=== PATIENT | female | born 1970 | race Two or more races ===

== ENCOUNTER 2024-09-08 06:55 | Day surgery (SDC) | payer MEDICAID, SELFPAY ==
[2024-09-06 11:22] VITALS: BMI 27.4
[2024-09-06 12:01] LABS: Basophils # (Auto) 0.1 Thou/mm3 (0.0-0.2); Basophils % (Auto) 1 % (0-2.5); Eosinophils # (Auto) 0.0 Thou/mm3 (0.0-0.5); Eosinophils % (Auto) 1 % (0-10); Hematocrit 39.3 % (36.0-46.0); Hemoglobin 12.9 g/dL (12.0-16.0); Immature Granulocytes Auto 0.02 Thou/mm3 (0.00-0.00); Lymphocytes # (Auto) 1.5 Thou/mm3 (1.0-4.8); Lymphocytes % (Auto) 25 % (10-50); Mean Corpuscular HGB Conc 32.8 g/dl (31.0-37.0); Mean Corpuscular Hemoglobin 29.5 pg (25.0-35.0); Mean Corpuscular Volume 90 fL (80-100); Monocytes # (Auto) 0.6 Thou/mm3 (0.0-0.8); Monocytes % (Auto) 9 % (0-12); Neutrophils # (Auto) 3.8 Thou/mm3 (1.8-7.7); Neutrophils % (Auto) 64 % (37-80); Nucleated Red Blood Cell # 0.00 Thou/mm3 (0.00-0.00); Nucleated Red Blood Cell % 0 /100 WBC (0); Platelet Count 170 Thou/mm3 (140-440); RDW Standard Deviation 42.0 fL (36.4-46.3); Red Blood Count 4.37 Miln/mm3 (4.00-5.20); White Blood Count 6.0 Thou/mm3 (3.6-11.0)
[2024-09-06 12:23] LABS: Alanine Aminotransferase 87 U/L (10-49); Albumin, Serum 4.2 gm/dL (3.5-5.0); Albumin/Globulin Ratio 1.4 (1.2-2.2); Alkaline Phosphatase 155 U/L (46-116); Anion Gap 8 (7-16); Aspartate Amino Transferase 97 U/L (0-34); BUN/Creatinine Ratio 14 Ratio (12-20); Bilirubin,Total 0.8 mg/dL (0.3-1.2); Blood Urea Nitrogen 14 mg/dL (9-23); Calcium 9.2 mg/dL (8.3-10.6); Calcium (Corrected) 9.2 mg/dL (8.5-10.1); Carbon Dioxide 27.6 mMol/L (20.0-31.0); Chloride 109 mMol/L (98-107); Creatinine (Component) 1.0 mg/dL (0.6-1.3); Estimated Creatinine Clearance 63.6 mL/min (>60); Globulin 3.0 gm/dL (2.3-3.5); Glucose 95 mg/dL (74-106); Osmolality,Calculated 289 (275-295); Potassium 4.0 mMol/L (3.4-5.1); Sodium 145 mMol/L (136-145); Total Protein 7.2 gm/dL (5.7-8.2); eGFR > 60 See Note
[2024-09-06 13:01] LABS: HIV (1&2) Antibody Rapid Non-Reactive
[2024-09-06 13:02] LABS: Hepatitis A Antibody IgM Non Reactive (Non React); Hepatitis B Core Antibody IgM Reactive (Non React); Hepatitis B Surface Antigen Non Reactive (Non React); Hepatitis C Antibody Non Reactive (Non React)
--- NOTE | 2024-09-07 09:59 | ESHP_ITS ---
Documentation for date of: 09/07/24 INTERIOR WALL ASSEMBLER - HPI History of Present Illness History of present illness: Ms. KELLOGG is a 54 year old female admitted for cervical conization. Pt denied any questions and concerns. Pt was given the option of hysterectomy vs conization , all risk and benefits were discussed . Pt chose to undergo Cervical conization. Meds Home Medications and Allergies Home Medications ?Medication ?Instructions ?Recorded ?Confirmed ?Type atorvastatin 40 mg tablet 40 mg PO HS 01/27/23 5 History levothyroxine 88 mcg tablet 88 mcg PO DAILY 01/27/23 0 09/06/24 History Allergies Allergy/AdvReac Type Severity Reaction Status Date / Time No Known Allergies Allergy Verified 09/06/24 11:21 Exam - INTERIOR WALL ASSEMBLER Constitutional Constitutional: no acute distress Routine HEENT Exam Head: Present normocephalic and atraumatic Eye: Present EOMI and PERRL ENT: Present mucous membranes moist Routine Neck Exam Neck: Present supple and trachea midline Routine Respiratory Exam Respiratory: Present chest non-tender, lungs clear, normal breath sounds and no resp distress Routine Cardiovascular Exam Cardiovascular: Present RRR Routine Abdominal Exam Abdominal: Present soft and normoactive bowel sounds Routine Extremities Exam Extremities: Present full ROM Routine Skin Exam Skin: Present intact and dry Routine Neurological Exam Neurological: Present alert, oriented X3 and CN II-XII intact Routine Psychiatric Exam Psychiatric: Present normal affect and normal thought process INTERIOR WALL ASSEMBLER - Results Labs 09/06/24 11:40 09/06/24 11:40 Labs: Short CBC 09/06/24 Range/Units 11:40 WBC 6.0 (3.6-11.0) Thou/mm3 Hgb 12.9 (12.0-16.0) g/dL Hct 39.3 (36.0-46.0) % Plt Count 170 (140-440) Thou/mm3 BMP 09/06/24 11:40 Sodium 145 Potassium 4.0 Chloride 109 H Carbon Dioxide 27.6 BUN 14 Creatinine 1.0 Glucose 95 Calcium 9.2 Liver Function 09/06/24 Range/Units 11:40 Total Bilirubin 0.8 (0.3-1.2) mg/dL AST 97 H (0-34) U/L ALT 87 H (10-49) U/L Alkaline Phosphatase 155 H (46-116) U/L Albumin 4.2 (3.5-5.0) gm/dL Impressions Impression: Colpo JJ 2 PAP ASC-H+HPV Patient was made aware that cold knife conization is removal of conical shape of cervix typically including the dysplastic cells, however chances of margin positivity exist , can only be confirmed after pathology examination. Alternative of hysterectomy discussed Risk of surgery includes bleeding , infectionIts an outpatnet surgery and anticipated discharge same day Quality Measures Quality Measures VTE prophylaxis
[2024-09-08] VITALS (7 sets, daily range): BP systolic 133–156; BP diastolic 85–102; PULSE 65–80; RESP 12–18; TEMP 36.6–37.3; O2SAT 96–100; BMI 27.3
[2024-09-08] MEDS: RINGERS LACTATED 1000 ML 1,000 ML 20 ML IV (07:49)
--- NOTE | 2024-09-08 09:47 | SUR.PHASEI ---
0903 Patient arrived to recovery resting comfortably in [facility], sleeping and able to arouse with verbal prompting then drifts back to sleep, on oxygen 10L via oxy mask, breathing unlabored, vital signs stable, denies pain, dressing intact to vaginal area; peripad, no bleeding noted, report received from Delia MARCANO and Micki POON
--- NOTE | 2024-09-08 10:03 | ESOP_ITS ---
Operative Note - SUPERIOR COURT JUDGE Procedure Date of procedure: 09/08/24 Procedure Performed: Cold knife conization Indication: JJ-3 Pre-Op diagnosis: Same Post-Op diagnosis: Same Anesthesia type: General Procedure description: The patient was taken back to the operating room and prepped and draped in a sterile fashion. General anesthesia was deemed to be adequate. A time-out was performed to confirm correct patient and correct procedure. The patient was then positioned on the operating room in the dorsolithotomy position. A bimanual examination was performed and the uterus was noted to be small, anteverted in size yet mobile. The cervix was visualized with the aid of a Todd. We performed endocervical currettage. With bobby daley. Dilute vasopressin was injected circumferentially around the cervix to aid in hemostasis. Utilizing 0 Vicryl we suture ligated the cervix at 3 and 9 o'clock positions to aid in decreased bleeding to ligate the cervical branch of the uterine arteries. Once the cervix was visualized to be pale, with a scalpel were able to circumferen tially remove a cone specimen of the cervix, again prior to excising that cone, we placed a Hegar dilator to protect our margins. Once the cone specimen was removed. Minimal amount of bleeding was noted. We controlled that with ball electrocautery and munsol solution. We then deemed the procedure complete. Hemostasis was obtained. We removed the speculum as well as the [place]. Sponge, lap and instrument counts were correct x2. The patient was transferred to the recovery room in stable condition Estimated blood loss (ml): 5 Surgical staff Operation Date: 09/08/24 09:00 Case Staff COMMERCIAL ATTORNEY: Micki Francis Diagnosis Problem List Completed Was Problem List Reviewed/Reconciled?: Yes
--- NOTE | 2024-09-08 10:37 | SUR.PHASEII ---
patient disconnected from vital signs monitor and is dressed in her clothing and awaiting her daughter to arrive to proceed with discharge instructions
--- NOTE | 2024-09-08 10:59 | SUR.PHASEII ---
1059 Patient meets discharge criteria from recovery, awake and alert, breathing unlabored, vital signs stable, denies pain, dressing intact; no bleeding noted, patient able to dress herself into her clothing, drinking fluids; tolerating well, denies nausea, discharge instructions given with the assistance of the hospital pressure sealer and tester Aleena to patient and patients daughter, daughter signed discharge instructions. Patient given all her belognigs prior to discharge, transported via wheelchair and left in a private vehicle.
== END 2024-09-08 10:59 | disposition home or self-care (01) ==
PROVIDERS: Anesthesiology; PCP Family Medicine; Referring Provider Student in an Organized Health Care Education/Training Program; Visit Provider Student in an Organized Health Care Education/Training Program
PROC: 0UBC7ZZ Excision of Cervix, Via Natural or Artificial Opening (ICD-10-PCS; CPT 57520; principal; 2024-09-08 08:45)
DX: R87.613 High grade squamous intraepithelial lesion on cytologic smear of cervix (HGSIL) (principal); Z90.710 Acquired absence of both cervix and uterus
CPT/HCPCS: 57520; 36415; 80053; 80074; 84703; 85025; 86703; 86850; 86900; 86901; A4217; A4649; J0131; J1100; J2405; J2598; J2704; J3010; J3490; J7120; J1596

== ENCOUNTER → 2024-11-22 | Outpatient (CLI) | payer MEDICAID, SELFPAY ==
--- NOTE | 2024-11-22 14:45 | XR_ITS ---
Examination: Screening digital mammography, bilateral Computer aided detection 3-D breast Tomosynthesis, bilateral Date and time of exam: 11/22/2024, 2:52 p.m. Comparisons: January 2021 through May 2023 Indications: Screening Technique: Nonmagnified MLO, CC views of the breasts to been obtained, reconstructed from 3-D Tomosynthesis images. R2 computer aided detection program utilized for evaluation of suspicious masses and/or abnormal calcifications. 3-D Tomosynthesis images obtained. Technologist: Findings: The breasts are heterogeneously dense, which may obscure small masses. No evidence of abnormal masses or suspicious calcifications. Impression: BI-RADS category 1: Negative findings (within normal) Recommend 1 year follow-up mammogram
== END | disposition home or self-care (01) ==
LOC: CDIM 14:41
PROVIDERS: Referring Provider Nurse Practitioner Family; Visit Provider Nurse Practitioner Family
DX: Z12.31 Encounter for screening mammogram for malignant neoplasm of breast (principal); R92.313 Mammographic fatty tissue density, bilateral breasts
CPT/HCPCS: 77063; 77067

== ENCOUNTER 2024-12-01 09:50 | Outpatient (RCR) | payer MEDICAID, SELFPAY ==
--- NOTE | 2024-11-26 09:45 | CTCCONSULT_ITS ---
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 [facility]/ Willaim San MD Reason for consultation. Patient with recent cone biopsy showing high-grade squamous intraepithelial neoplasm cervix. History of Present Illness: Patient is 54-year-old lady followed with Pap smears which showed moderate cervical dysplasia and on 09/08/2024 underwent endocervical curettage and cervical cone biopsy. The final path was insufficient tissue for diagnosis endocervical curettage and on cervical cone biopsy high-grade squamous intraepithelial neoplasm. There was negative invasion and surgical margins were negative for involvement. Past Medical History: Hypertension thyroid disorder history of tubal ligation Meds. Levothyroxine atorvastatin nitrofurantoin Social History: Originally from [place] [place] Tajik-speaking; denies smoking drinking first menses age 13 age of first 16 4 pregnancies 4 births. Patient works at [employer] Allergies none known Family history. 1 sister with stomach cancer Review of Systems: Noncontributory Physical Exam: General: Adequate nourished appearing lady no acute distress HEENT: Atraumatic no cephalic extraocular is intact no oral lesions no cervical or supraclavicular adenopathy CV: Chest clear to auscultation heart regular rate and rhythm ABD: Soft no organomegaly or tenderness pelvic deferred EXT: No cyanosis clubbing or edema Assessment:1. High-grade squamous intraepithelial neoplasm: Biopsy of cervix. 2. Patient needs BOILER SHOP MECHANIC Onc evaluation. Need to make sure that this does not extend into cervical canal and that there is no sign of invasive cancer. 3. Will schedule follow-up visit after the BOILER SHOP MECHANIC Onc evaluation. 4. Attempted to speak with Dr. San, referring physician. Spoke with Sabino HUFFMAN Cc: [facility] William San MD Electronically signed by: Liam Muniz MD, DABR 11/26/2024 9:43 AM
--- NOTE | 2024-12-01 13:09 | CTCCONSULT_ITS ---
Patient: FERNANDO AVALOS : 1970 MR#: [id number] Page 2 of 3 CONSULTATION NOTE DATE OF CONSULTATION: 12/01/2024 NAME: FERNANDO AVALOS ACCOUNT: [id number] : 1970 AGE: 54 REFERRING PHYSICIAN: William San MD PRIMARY PHYSICIAN: William San MD REASON FOR VISIT: New cervical cancer diagnosis ONCOLOGY HISTORY: DIAGNOSIS: Carcinoma in situ of exocervix [ICD10] D06.1 DATE OF DIAGNOSIS: 09/08/2024 STAGE/TNM: Likely high-grade squamous intraepithelial neoplasm TREATMENT HISTORY: Care?Plan Start?Date Cycle Day Intent HISTORY OF PRESENT ILLNESS: 54-year-old female Pap smears which showed moderate cervical dysplasia and on 09/08/2024 underwent endocervical curettage and cervical cone biopsy. The final path was insufficient tissue for diagnosis endocervical curettage and on cervical cone biopsy high-grade squamous intraepithelial neoplasm. There was negative invasion and surgical margins were negative for involvement. Patient is being planned for surgery on December 14 for hysterectomy. 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 atorvastatin - 40 mg 1 tab Daily 2. levothyroxine - 75 mcg 1 tab Daily Medications Last Reconciled by Natty Ya RN on 12/01/2024 ALLERGIES: No Known Drug Allergies REVIEW OF SYSTEMS: A complete 14-point review of systems was performed and is negative except as noted in interval history. PHYSICAL EXAMINATION: VITAL SIGNS: Temperature?97.8, B/P?121/82, Height?63?inches, Oxygen?Saturation?100% Weight?162?lbs (Change?since?11/17/24:?0?lbs) PAIN: 0 - No pain ECOG Performance Status: 0 - Asymptomatic and fully active GENERAL APPEARANCE: Appears well, in no apparent distress, appropriately interactive. HEENT: Normocephalic, no temporal wasting, normal conjunctiva, no scleral icterus, normal hearing, lips without lesions, neck normal range of motion. CARDIOVASCULAR: Not assessed. PULMONARY: Normal respiratory effort, no respiratory distress or use of accessory muscles, speaking in full sentences, no tachypnea. EXTREMITIES: No pedal edema or cyanosis. SKIN: Normal skin appearance. NEUROLOGIC: Alert and oriented x4. PSHYCHIATRIC: Appropriate affect, mood normal, behavior normal, intact thought and speech. LABORATORY DATA: I have personally reviewed and interpreted each of Ms. Avalos?dwayne relevant lab tests, abnormal findings are below: Date ASSESSMENT/PLAN: HSIL Patient is scheduled for hysterectomy on December 14, 2024 Will follow on the final path report RTC after the surgery Will do full staging with CT scan chest abdomen pelvis and MRI pelvis to rule out any progression or involvement of lymph node or metastatic disease Advised to follow-up with surgery and return after December 20\ ORDERS: Order # Description [id number] CT Scan + Chest + Abdomen and Pelvis + With Contrast [id number] MRI + Pelvis + With Contrast RETURN TO CLINIC: I reviewed the diagnosis, prognosis, and recommended treatment/procedure options with the patient (and/or their legal mechanical service representative), including the potential benefits, risks, side effects and alternative therapies. We also discussed the option of no treatment and the possibility of clinical trial participation, if applicable. All questions were addressed, and they demonstrated understanding. They provided informed consent to proceed with the proposed plan of care. BILLING AND COMPLIANCE: I reviewed external records from providers outside my specialty as summarized above. I spent a total of 50 minutes on this patient?s care on the day of their visit excluding time spent related to any billed procedures. This time includes time spent with the patient as well as time spent documenting in the medical record, reviewing patients records and tests, obtaining history, placing orders, communicating with other healthcare professionals, counseling the patient, family or caregiver, and/or care coordination for the diagnoses above. Electronically Signed by: Blake Goodman MD T: 1:06 PM CC: PCP: William San Referring: William San This document was completed utilizing speech recognition software. Grammatical errors, random word insertions, pronoun errors, and incomplete sentences are an occasional consequence of this system due to software limitations, ambient noise, and hardware issues. Any formal questions or concerns about the content, text or information contained within the body of this dictation should be directly addressed to the provider for clarification.
== END 2024-12-10 23:59 | disposition home or self-care (01) ==
LOC: SCTC 09:50
PROVIDERS: PCP Family Medicine; Referring Provider Neuromusculoskeletal Medicine, Sports Medicine; Visit Provider Internal Medicine Hematology & Oncology
DX: D06.9 Carcinoma in situ of cervix, unspecified (principal)
CPT/HCPCS: 99213; G0463

== ENCOUNTER 2024-12-22 09:51 | Outpatient (RCR) | payer MEDICAID, SELFPAY ==
--- NOTE | 2024-12-22 10:58 | CTCFLWUP_ITS ---
Patient: FERNANDO KELLOGG : 1970 Page 2 of 2 FOLLOW UP NOTE DATE OF SERVICE: 12/22/2024 NAME: FERNANDO KELLOGG ACCOUNT: [id number] : 1970 AGE: 54 INTERVAL HISTORY: Fatigue dizzy and swelling since surgery otherwise doing well. Patient is doing well. ONCOLOGY HISTORY: DIAGNOSIS: Carcinoma in situ of exocervix [ICD10] D06.1 DATE OF DIAGNOSIS: 09/08/2024 STAGE/TNM: Likely high-grade squamous intraepithelial neoplasm s/p hysterectomy and bilateral oophorectomy TREATMENT HISTORY: Care?Plan Start?Date Cycle Day Intent HISTORY OF PRESENT ILLNESS: 54-year-old female Pap smears which showed moderate cervical dysplasia and on 09/08/2024 underwent endocervical curettage and cervical cone biopsy. The final path was insufficient tissue for diagnosis endocervical curettage and on cervical cone biopsy high-grade squamous intraepithelial neoplasm. There was negative invasion and surgical margins were negative for involvement. Patient is being planned for surgery on December 14 for hysterectomy. OTHER MEDICAL HISTORY/CONDITIONS: High grade squamous intraepithelial neoplasm - dx 09/08/24 Hyperlipidemia Thyroid disorder DENIES FAMILY HISTORY: Sibling:?Brother?-?stomach?-?dx?age?68 SOCIAL HISTORY: Occupational?History:?[employer] Education?Level:?Completed something less than 8th grade Marital?Status:?Life?Partner Tobacco?Use:?DENIES ETOH?Use:?DENIES Drug?Note:?DENIES Social History Note:?LIVES WITH PARTNER / DAUGHTER SPOOLER HISTORY: Menarche?-?Age:?13 Menopause:??4?YRS?AGO Hormone?Use:?DENIES :?4 Live?Births:?4 Age?1st?:?16 MEDICATIONS: 1. atorvastatin - 40 mg 1 tab Daily 2. levothyroxine - 75 mcg 1 tab Daily Medications Last Reconciled by Natty Ya RN on 12/01/2024 ALLERGIES: No Known Drug Allergies REVIEW OF SYSTEMS: A complete 14-point review of systems was performed and is negative except as noted in interval history. PHYSICAL EXAMINATION: VITAL SIGNS: PAIN: 1 - Between no and mild pain ECOG Performance Status: 0 - Asymptomatic and fully active GENERAL APPEARANCE: Appears well, in no apparent distress, appropriately interactive. HEENT: Normocephalic, no temporal wasting, normal conjunctiva, no scleral icterus, normal hearing, lips without lesions, neck normal range of motion. CARDIOVASCULAR: Not assessed. PULMONARY: Normal respiratory effort, no respiratory distress or use of accessory muscles, speaking in full sentences, no tachypnea. EXTREMITIES: No pedal edema or cyanosis. SKIN: Normal skin appearance. NEUROLOGIC: Alert and oriented x4. PSHYCHIATRIC: Appropriate affect, mood normal, behavior normal, intact thought and speech. LABORATORY DATA: I have personally reviewed and interpreted each of the patient?s relevant lab tests, abnormal findings are below: Date ASSESSMENT/PLAN: HSIL Patient had hysterectomy on December 14, 2024 [facility]ed records from [facility] Will follow on the final path report RTC after the records are in the chart Will do full staging with CT scan chest abdomen pelvis and MRI pelvis to rule out any progression or involvement of lymph node or metastatic disease RTC in 3 weeks with records as well as imaging results Will do Signatera to evaluate for MRD ORDERS: Order # Description [id number] MD Follow Up 3 Week [id number] [place] [id number] RETURN TO CLINIC: I reviewed the diagnosis, prognosis, and recommended treatment/procedure options with the patient (and/or their legal installation service representative), including the potential benefits, risks, side effects and alternative therapies. We also discussed the option of no treatment and the possibility of clinical trial participation, if applicable. All questions were addressed, and they demonstrated understanding. They provided informed consent to proceed with the proposed plan of care. BILLING AND COMPLIANCE: I reviewed external records from providers outside my specialty as summarized above. I spent a total of 50 minutes on this patient?s care on the day of their visit excluding time spent related to any billed procedures. This time includes time spent with the patient as well as time spent documenting in the medical record, reviewing patients records and tests, obtaining history, placing orders, communicating with other healthcare professionals, counseling the patient, family or caregiver, and/or care coordination for the diagnoses above. Electronically Signed by: Blake Goodman MD T: 10:56 AM CC: PCP: Finesse Fowler Referring: Finesse Fowler This document was completed utilizing speech recognition software. Grammatical errors, random word insertions, pronoun errors, and incomplete sentences are an occasional consequence of this system due to software limitations, ambient noise, and hardware issues. Any formal questions or concerns about the content, text or information contained within the body of this dictation should be directly addressed to the provider for clarification.
== END 2025-01-09 23:59 | disposition home or self-care (01) ==
LOC: SCTC 09:51
PROVIDERS: PCP Family Medicine; Referring Provider Family Medicine; Visit Provider Internal Medicine Hematology & Oncology
DX: R87.613 High grade squamous intraepithelial lesion on cytologic smear of cervix (HGSIL) (principal); Z90.710 Acquired absence of both cervix and uterus; Z90.722 Acquired absence of ovaries, bilateral
CPT/HCPCS: 99212; G0463